=== PATIENT | male | born 1960 | race Caucasian/White ===

== ENCOUNTER 2021-06-02 11:50 | Inpatient (IN) | payer OTHER ==
[~2021-06-02] VITALS: Ht 177.8 cm; Wt 89.0 kg
[~2021-06-02 11:50] MED LIST: ALDACTONE25 MG PO; ASPIRIN CHEWABL81 MG PO; AUGMENTIN 875-1 EACH PO; BRILINTA 90 MG90 MG PO; COMBIVENT0.074 GM/I INH; COREG 12.5MG12.5 MG PO; COREG 3.125M3.125 MG PO; ELIQUIS2.5 MG PO; ELIQUIS5 MG PO; FUROSEMIDE40 MG PO; K-DUR TAB 10 M10 MEQ PO; LASIX40 MG PO; LEVAQUIN500 MG PO; LIPITOR TAB 2020 MG PO; LISINOPRIL2.5 MG PO; NEURONTIN800 MG PO; NITROSTAT 0.40.4 MG SL; NITROSTAT0.4 MG SL; PERCOCET 10-321 EACH PO; PLAVIX 75 MG TA75 MG PO; POTASSIUM CHLO10 ME1 PO; TYLENOL W/CODEIN1 E1 PO; VIBRAMYCIN 100100 MG PO; ZESTRIL2.5 MG PO; ZITHROMAX500 MG PO; ZOCOR40 MG PO
[2021-06-02 12:58] LABS: HEMOGLOBIN 13.7 gm/dl (14.0-17.5); RED BLOOD COUNT 4.36 M/UL (4.20-5.50); WHITE BLOOD COUNT 13.5 K/UL (4.5-11.0)
[2021-06-02 13:49] LABS: BUN/CREATININE RATIO 11 (0-10)
[2021-06-02] MEDS ORDERED: AMLODIPINE BESYL5 MG PO (17:15)
[2021-06-02] MEDS ORDERED: ELIQUIS5 MG PO (17:16)
[2021-06-02] MEDS ORDERED: ZETIA10 MG PO (17:17)
[2021-06-02] MEDS ORDERED: VITAMIN D21250 MCG PO (17:17)
[2021-06-02] MEDS ORDERED: BUPRENORPHINE-1 EACH SL (17:17)
[2021-06-02] MEDS ORDERED: FLOVENT 110.088 GM/I INH (17:18)
[2021-06-02] MEDS ORDERED: ENTRESTO 24 MG1 EACH PO (17:19)
[2021-06-03 05:42] LABS: HEMOGLOBIN 12.5 gm/dl (14.0-17.5); RED BLOOD COUNT 4.14 M/UL (4.20-5.50)
[2021-06-03 05:43] LABS: WHITE BLOOD COUNT 20.1 K/UL (4.5-11.0)
[2021-06-04 01:57] LABS: RED BLOOD COUNT 4.18 M/UL (4.20-5.50); WHITE BLOOD COUNT 17.7 K/UL (4.5-11.0)
--- NOTE | 2021-06-04 02:32 | NUR ---
0230 MD FRANCISCO AWARE OF CRITICAL CK[facility] AND TROPONIN.
[2021-06-04 10:34] LABS: BUN/CREATININE RATIO 17 (0-10)
[2021-06-05 05:28] LABS: HEMOGLOBIN 13.1 gm/dl (14.0-17.5); RED BLOOD COUNT 4.19 M/UL (4.20-5.50)
[2021-06-05 05:39] LABS: WHITE BLOOD COUNT 10.5 K/UL (4.5-11.0)
[2021-06-06 05:30] LABS: HEMOGLOBIN 12.3 gm/dl (14.0-17.5); RED BLOOD COUNT 4.04 M/UL (4.20-5.50); WHITE BLOOD COUNT 8.3 K/UL (4.5-11.0)
[2021-06-06 09:13] LABS: COMPLEMENT C3, SERUM 47 mg/dL (82-167); COMPLEMENT C4, SERUM 8 mg/dL (12-38); HBSAG SCREEN Negative (Negative); HEP B CORE AB, TOT Positive (Negative); HEP C VIRUS AB 0.3 (0.0-0.9)
[2021-06-06 10:12] LABS: ANTISTREPTOLYSIN O AB 171.2 IU/mL (0.0-200.0)
[2021-06-07 05:54] LABS: WHITE BLOOD COUNT 10.1 K/UL (4.5-11.0)
[2021-06-07 14:09] LABS: ANTI-DSDNA ANTIBODIES 1 IU/mL (0-9)
[2021-06-08 05:48] LABS: HEMOGLOBIN 12.5 gm/dl (14.0-17.5); RED BLOOD COUNT 4.2 M/UL (4.20-5.50); WHITE BLOOD COUNT 9.5 K/UL (4.5-11.0)
[2021-06-08 14:10] LABS: ALBUMIN 2.7 g/dL (2.9-4.4); ALPHA-1-GLOBULIN 0.3 g/dL (0.0-0.4); ALPHA-2-GLOBULIN 0.7 g/dL (0.4-1.0); BETA GLOBULIN 0.7 g/dL (0.7-1.3); GLOBULIN, TOTAL 2.8 g/dL (2.2-3.9); IMMUNOGLOBULIN A, QN, SERUM 375 mg/dL (90-386); IMMUNOGLOBULIN G, QN, SERUM 1035 mg/dL (603-1613); IMMUNOGLOBULIN M, QN, SERUM 53 mg/dL (20-172); M-SPIKE Not Observed g/dL (Not Observed); PROTEIN, TOTAL, SERUM 5.5 g/dL (6.0-8.5)
[2021-06-08 15:09] LABS: ANTI-DNA (DS) AB QN 1 IU/mL (0-9)
--- NOTE | 2021-06-09 05:05 | NUR ---
PT ARRIVED FROM ICU. AT BEDSIDE. PT ALERT BUT CONFUSED. DIAYLSIS DRESSING CHANGED DUE TO SOILED EXCESSIVELY WITH BLOOD. PERIPHERAL IV DRESSING CHANGED WELL. PT RESTING IN NAD AT THIS TIME. WILL CONTINUE TO MONITOR. CALL LIGHT WITHIN REACH AND BED IN LOW POSITION.
--- NOTE | 2021-06-09 05:06 | NUR ---
0427: GAVE REPORT FOR PATIENT 0429: TRANSPORTED PT IN STABLE CONDITION TO THE ROOM.
[2021-06-09 06:11] LABS: HEMOGLOBIN 11.1 gm/dl (14.0-17.5)
[2021-06-09 06:21] LABS: RED BLOOD COUNT 3.65 M/UL (4.20-5.50); WHITE BLOOD COUNT 18.3 K/UL (4.5-11.0)
[2021-06-09 17:09] LABS: ATYPICAL PANCA <1:20 titer (Neg:<1:20); PERINUCLEAR (P-ANCA) <1:20 titer (Neg:<1:20)
[2021-06-09 19:43] LABS: HEMOGLOBIN 10.2 gm/dl (14.0-17.5); RED BLOOD COUNT 3.29 M/UL (4.20-5.50); WHITE BLOOD COUNT 18.4 K/UL (4.5-11.0)
--- NOTE | 2021-06-09 19:47 | NUR ---
REPORT TO KAM JONES IN ICU PT TO BE TAKEN TO ROOM 2126
[2021-06-09 23:19] LABS: HEMOGLOBIN 10.6 gm/dl (14.0-17.5); RED BLOOD COUNT 3.45 M/UL (4.20-5.50); WHITE BLOOD COUNT 19.5 K/UL (4.5-11.0)
[2021-06-10 02:16] LABS: HEMOGLOBIN 10.4 gm/dl (14.0-17.5); RED BLOOD COUNT 3.41 M/UL (4.20-5.50); WHITE BLOOD COUNT 18.2 K/UL (4.5-11.0)
[2021-06-10 07:17] LABS: HEMOGLOBIN 10.4 gm/dl (14.0-17.5); RED BLOOD COUNT 3.38 M/UL (4.20-5.50); WHITE BLOOD COUNT 15.2 K/UL (4.5-11.0)
[2021-06-11 05:56] LABS: HEMOGLOBIN 9.8 gm/dl (14.0-17.5); RED BLOOD COUNT 3.23 M/UL (4.20-5.50)
[2021-06-11 05:57] LABS: WHITE BLOOD COUNT 11.2 K/UL (4.5-11.0)
--- NOTE | 2021-06-11 14:45 | NUR ---
RECEIVED PATIENT FROM ICU AT 1300 TODAY. REPORT TAKEN FROM LIZZIE. PATIENT IS RESTING QUIETLY. VASOPRESSIN TO BE TITRATED OFF PATIENT PER DR DUBOIS. PRESENTLY AT 2.4, WILL CHANGE TO 1.4 AND CONTINUE TO MONITOR. AMANDA
[2021-06-12 03:55] LABS: HEMOGLOBIN 11.4 gm/dl (14.0-17.5)
[2021-06-12 04:03] LABS: RED BLOOD COUNT 3.73 M/UL (4.20-5.50); WHITE BLOOD COUNT 15.8 K/UL (4.5-11.0)
[2021-06-13 09:11] LABS: HEMOGLOBIN 11.5 gm/dl (14.0-17.5); RED BLOOD COUNT 3.71 M/UL (4.20-5.50); WHITE BLOOD COUNT 15.1 K/UL (4.5-11.0)
[2021-06-14 03:54] LABS: RED BLOOD COUNT 3.95 M/UL (4.20-5.50); WHITE BLOOD COUNT 18.1 K/UL (4.5-11.0)
[2021-06-15 03:42] LABS: HEMOGLOBIN 11.2 gm/dl (14.0-17.5); RED BLOOD COUNT 3.67 M/UL (4.20-5.50); WHITE BLOOD COUNT 19.8 K/UL (4.5-11.0)
[2021-06-16 05:42] LABS: HEMOGLOBIN 11.5 gm/dl (14.0-17.5); RED BLOOD COUNT 3.78 M/UL (4.20-5.50)
[2021-06-17 02:39] LABS: HEMOGLOBIN 10.2 gm/dl (14.0-17.5); WHITE BLOOD COUNT 18.6 K/UL (4.5-11.0)
[2021-06-17 02:45] LABS: RED BLOOD COUNT 3.36 M/UL (4.20-5.50)
[2021-06-17 08:15] LABS: HBSAG SCREEN Negative (Negative); HEP A AB, IGM Negative (Negative); HEP B CORE AB, IGM Positive (Negative); HEP C VIRUS AB <0.1 (0.0-0.9)
[2021-06-18 06:10] LABS: HEMOGLOBIN 9.6 gm/dl (14.0-17.5); RED BLOOD COUNT 3.18 M/UL (4.20-5.50); WHITE BLOOD COUNT 15.6 K/UL (4.5-11.0)
[2021-06-18 09:14] LABS: COMPLEMENT C3, SERUM 144 mg/dL (82-167)
[2021-06-18 19:08] LABS: ATYPICAL PANCA <1:20 titer (Neg:<1:20); CYTOPLASMIC (C-ANCA) <1:20 titer (Neg:<1:20); PERINUCLEAR (P-ANCA) <1:20 titer (Neg:<1:20)
[2021-06-20 06:54] LABS: HEMOGLOBIN 9.1 gm/dl (14.0-17.5); WHITE BLOOD COUNT 11.8 K/UL (4.5-11.0)
--- NOTE | 2021-06-23 09:52 | NUR ---
patient had a blood pressure reading of 95/55. when rechecked patients blood pressure is now 123//73.
--- NOTE | 2021-06-24 12:59 | NUR ---
CLARIFIED WITH DR. LYONS THAT PATIENTS DIALYSIS CATHETER IS TEMPORARY AND THAT IS CATHETER IS NO TUNNELED. DR. LYONS GAVE ORDERS TO PULL THE DIAYSIS CATHETER AND TO APPLY PRESSURE AFTER THE CATHETER IS REMOVED.
--- NOTE | 2021-06-24 15:25 | NUR ---
PATIENT HAD TEMPERARY DIALYSIS CATHETER REMOVED. NO S/S OF INFECTION PRESENT. NO BLEEDING AT SITE. PATIENT TOLERATED WELL. WILL CONTINUE TO MONITOR.
[2021-06-25] MEDS ORDERED: LOPRESSOR 50 MG50 MG PO (10:38)
[2021-06-25] MEDS ORDERED: PROTONIX 40 MG40 M1 PO (10:54)
--- NOTE | 2021-06-25 11:51 | NUR ---
RM AIR O2 SAT 82.
== END 2021-06-25 10:36 | disposition home health service (06) | DRG 871 ==
LOC: ER1 11:50 → PROG CARE 15:59 → MED SURG 4 15:59 → CDU 15:59 → CCU 15:59 → PROG CARE 06-09 05:12 → CCU 06-09 20:09 → PROG CARE 06-11 12:49 → CCU 06-15 12:17 → MED SURG 4 06-16 17:49
PROVIDERS: Hospitalist; Internal Medicine; Internal Medicine Nephrology; Internal Medicine Pulmonary Disease; Physician Assistant; ADMIT Internal Medicine
DX: A41.9 Sepsis, unspecified organism (principal); I21.A1 Myocardial infarction type 2; R65.21 Severe sepsis with septic shock; I50.23 Acute on chronic systolic (congestive) heart failure; N17.0 Acute kidney failure with tubular necrosis; J96.01 Acute respiratory failure with hypoxia; J18.9 Pneumonia, unspecified organism; Z20.822 Contact with and (suspected) exposure to COVID-19; K72.00 Acute and subacute hepatic failure without coma; N18.6 End stage renal disease; I48.20 Chronic atrial fibrillation, unspecified; B19.10 Unspecified viral hepatitis B without hepatic coma; K40.30 Unilateral inguinal hernia, with obstruction, without gangrene, not specified as recurrent; D62 Acute posthemorrhagic anemia; K92.2 Gastrointestinal hemorrhage, unspecified; I13.0 Hypertensive heart and chronic kidney disease with heart failure and stage 1 through stage 4 chronic kidney disease, or unspecified chronic kidney disease; G93.40 Encephalopathy, unspecified; I13.2 Hypertensive heart and chronic kidney disease with heart failure and with stage 5 chronic kidney disease, or end stage renal disease; I42.0 Dilated cardiomyopathy; K42.0 Umbilical hernia with obstruction, without gangrene; E87.3 Alkalosis; E87.2 Acidosis; E87.1 Hypo-osmolality and hyponatremia; I49.5 Sick sinus syndrome; E78.5 Hyperlipidemia, unspecified; K59.81 Ogilvie syndrome; I95.9 Hypotension, unspecified; E87.6 Hypokalemia; R74.01 Elevation of levels of liver transaminase levels; K74.60 Unspecified cirrhosis of liver; E87.70 Fluid overload, unspecified; G89.29 Other chronic pain; I49.3 Ventricular premature depolarization; I45.10 Unspecified right bundle-branch block; R53.81 Other malaise; I27.20 Pulmonary hypertension, unspecified; I25.5 Ischemic cardiomyopathy; M79.81 Nontraumatic hematoma of soft tissue; I25.10 Atherosclerotic heart disease of native coronary artery without angina pectoris; Z95.1 Presence of aortocoronary bypass graft; Z95.810 Presence of automatic (implantable) cardiac defibrillator; Z79.82 Long term (current) use of aspirin; Z79.01 Long term (current) use of anticoagulants; Z86.711 Personal history of pulmonary embolism; Z80.1 Family history of malignant neoplasm of trachea, bronchus and lung
CPT/HCPCS: ECHO; 0240U; 36415; 36600; 71045; 74018; 80048; 80053; 80069; 80074; 80202; 81001; 82140; 82436; 82550; 82553; 82570; 82595; 82784; 82803; 82962; 83036; 83520; 83605; 83735; 83874; 83880; 83883; 84100; 84133; 84155; 84156; 84165; 84300; 84439; 84443; 84484; 85025; 85027; 85610; 85730; 86038; 86060; 86140; 86160; 86162; 86225; 86256; 86334; 86704; 86706; 86708; 86803; 87040; 87086; 87340; 89050; 90935; 90937; 92610; 93005; 93306; 94640; 94660; 94664; 94760; 96374; 96375; 97110; 97116; 97161; 97162; 97165; 97168; 97530; 97530-GP-CQ; 97535; 99285; C1752; C1781; C9113; J0456; J0690; J0692; J0696; J1170; J1644; J1940; J2185; J2250; J2370; J2704; J2710; J2930; J3010; J3370; J7030; J7040; J7070; J7120; P9047; Q9967; U0002

== ENCOUNTER 2021-06-29 23:13 | Emergency (ER) | payer OTHER ==
[~2021-06-29 23:13] MED LIST changes: +AMLODIPINE BESYL5 MG PO; +BUPRENORPHINE-1 EACH SL; +ENTRESTO 24 MG1 EACH PO; +FLOVENT 110.088 GM/I INH; -LIPITOR TAB 2020 MG PO; +LIPITOR40 MG PO; +LOPRESSOR 50 MG50 MG PO; +PROTONIX 40 MG40 M1 PO; +VITAMIN D21250 MCG PO; +ZETIA10 MG PO
[2021-06-30 00:03] LABS: HEMOGLOBIN 9.6 gm/dl (14.0-17.5); RED BLOOD COUNT 3.18 M/UL (4.20-5.50); WHITE BLOOD COUNT 11.3 K/UL (4.5-11.0)
== END 2021-06-30 05:40 | disposition home or self-care (01) ==
LOC: ER1 23:13
PROVIDERS: Family Medicine
DX: M79.81 Nontraumatic hematoma of soft tissue (principal); D64.9 Anemia, unspecified; I13.0 Hypertensive heart and chronic kidney disease with heart failure and stage 1 through stage 4 chronic kidney disease, or unspecified chronic kidney disease; I50.20 Unspecified systolic (congestive) heart failure; N18.9 Chronic kidney disease, unspecified; I48.91 Unspecified atrial fibrillation; Z99.81 Dependence on supplemental oxygen; R06.00 Dyspnea, unspecified; Z79.82 Long term (current) use of aspirin; Z79.01 Long term (current) use of anticoagulants; Z79.899 Other long term (current) drug therapy
CPT/HCPCS: 71045; 80053; 81001; 82550; 82553; 83605; 83690; 83874; 84484; 85025; 93005; 99285

== ENCOUNTER 2021-07-17 16:53 | Inpatient (IN) | payer OTHER ==
[~2021-07-17] VITALS: Ht 177.8 cm; Wt 86.3 kg
[~2021-07-17 16:53] MED LIST changes: +LIPITOR TAB 2020 MG PO; -LIPITOR40 MG PO
[2021-07-17 18:55] LABS: HEMOGLOBIN 10.9 gm/dl (14.0-17.5); RED BLOOD COUNT 3.65 M/UL (4.20-5.50); WHITE BLOOD COUNT 10.6 K/UL (4.5-11.0)
[2021-07-18 07:16] LABS: HEMOGLOBIN 10.6 gm/dl (14.0-17.5); RED BLOOD COUNT 3.67 M/UL (4.20-5.50); WHITE BLOOD COUNT 11.3 K/UL (4.5-11.0)
--- NOTE | 2021-07-18 17:34 | NUR ---
PATIENT IN ATRIAL FIBRILATION WITH RVR. NOTIFIED CARDIOLOGY. NEW ORDER FOR AMIODARONE DRIP. NOTIFIED [employer]AL TOWER OPERATOR OF BED REQUEST. NOTIFIED DR. CORTEZ FOR TRANSFER ORDERS.
[2021-07-19 08:14] LABS: HEMOGLOBIN 11.9 gm/dl (14.0-17.5)
[2021-07-19 08:15] LABS: RED BLOOD COUNT 4.08 M/UL (4.20-5.50); WHITE BLOOD COUNT 15.1 K/UL (4.5-11.0)
[2021-07-20 03:08] LABS: HEMOGLOBIN 11.8 gm/dl (14.0-17.5); RED BLOOD COUNT 4.07 M/UL (4.20-5.50); WHITE BLOOD COUNT 15.6 K/UL (4.5-11.0)
[2021-07-20] MEDS ORDERED: ELIQUIS 5 MG TAB5 MG PO (10:31)
[2021-07-20] MEDS ORDERED: CARVEDILOL3.125 MG PO (10:31)
[2021-07-20] MEDS ORDERED: LASIX40 MG PO (10:31)
== END 2021-07-20 12:54 | disposition home health service (06) | DRG 291 ==
LOC: ER1 16:53 → CDU 20:52 → M/S 22:26 → CDU 22:26 → M/S 07-18 03:15 → PROG CARE 07-18 18:35
PROVIDERS: Family Medicine; Internal Medicine; Internal Medicine Cardiovascular Disease; Physician Assistant; ADMIT Internal Medicine
DX: I13.0 Hypertensive heart and chronic kidney disease with heart failure and stage 1 through stage 4 chronic kidney disease, or unspecified chronic kidney disease (principal); Z20.822 Contact with and (suspected) exposure to COVID-19; I50.23 Acute on chronic systolic (congestive) heart failure; I48.20 Chronic atrial fibrillation, unspecified; E83.42 Hypomagnesemia; F11.20 Opioid dependence, uncomplicated; B18.1 Chronic viral hepatitis B without delta-agent; J96.11 Chronic respiratory failure with hypoxia; N18.30 Chronic kidney disease, stage 3 unspecified; E11.22 Type 2 diabetes mellitus with diabetic chronic kidney disease; I27.20 Pulmonary hypertension, unspecified; R33.9 Retention of urine, unspecified; I49.3 Ventricular premature depolarization; E87.6 Hypokalemia; I25.10 Atherosclerotic heart disease of native coronary artery without angina pectoris; N14.1 Nephropathy induced by other drugs, medicaments and biological substances; I25.5 Ischemic cardiomyopathy; Z95.810 Presence of automatic (implantable) cardiac defibrillator; Z86.711 Personal history of pulmonary embolism; Z95.5 Presence of coronary angioplasty implant and graft; Z98.890 Other specified postprocedural states; Z80.1 Family history of malignant neoplasm of trachea, bronchus and lung; Z87.01 Personal history of pneumonia (recurrent); Z79.01 Long term (current) use of anticoagulants; Z79.82 Long term (current) use of aspirin
CPT/HCPCS: 36415; 71045; 80048; 80053; 81001; 82550; 82553; 82728; 82962; 83540; 83550; 83735; 83880; 84484; 85025; 85610; 85730; 93005; 96374; 96375; 96376; 99285; G0378; J1650; J1940; J2405; J2550; J3475; U0002

== ENCOUNTER 2021-07-26 15:34 | Inpatient (IN) | payer OTHER ==
[~2021-07-26] VITALS: Ht 177.8 cm; Wt 100.2 kg
[~2021-07-26 15:34] MED LIST changes: +CARVEDILOL3.125 MG PO; +ELIQUIS 5 MG TAB5 MG PO; -LIPITOR TAB 2020 MG PO; +LIPITOR40 MG PO
[2021-07-26] MEDS ORDERED: ELIQUIS5 MG PO (17:42)
[2021-07-26] MEDS ORDERED: FUROSEMIDE40 MG PO (17:43)
[2021-07-26] MEDS ORDERED: POTASSIUM CHLO20 ME2 PO (17:44)
[2021-07-26] MEDS ORDERED: GABAPENTIN800 MG PO (17:45)
[2021-07-26] MEDS ORDERED: CARVEDILOL12.5 MG PO (17:46)
[2021-07-26] MEDS ORDERED: VITAMIN B-121000 MCG PO (17:46)
[2021-07-26 19:07] LABS: HEMOGLOBIN 11.2 gm/dl (14.0-17.5); RED BLOOD COUNT 3.79 M/UL (4.20-5.50); WHITE BLOOD COUNT 12.7 K/UL (4.5-11.0)
[2021-07-27 01:56] LABS: HEMOGLOBIN 10.6 gm/dl (14.0-17.5); RED BLOOD COUNT 3.62 M/UL (4.20-5.50); WHITE BLOOD COUNT 12.2 K/UL (4.5-11.0)
[2021-07-27 15:20] LABS: ACINETOBACTER BAUMANNII Not Detected (Negative); CANDIDA ALBICANS Not Detected (Negative); CANDIDA KRUSEI Not Detected (Negative); CANDIDA TROPICALIS Not Detected (Negative); ENTEROCOCCUS Not Detected (Negative); ESCHERICHIA COLI Not Detected (Negative); HAEMOPHILUS INFLUENZAE Not Detected (Negative); KLEBSIELLA OXYTOCA Not Detected (Negative); KLEBSIELLA PNEUMONIAE Not Detected (Negative); KPC-CARBAPENEM-RESISTANCE GENE Not Detected (Negative); PROTEUS Not Detected (Negative); PSEUDOMONAS AERUGINOSA Not Detected (Negative); SERRATIA MARCESANS Not Detected (Negative); STAPHYLOCOCCUS AUREUS Not Detected (Negative); STREP AGALACTIAE (GROUP B) Not Detected (Negative); STREP PYOGENES (GROUP A) Not Detected (Negative); STREPTOCOCCUS Not Detected (Negative); vanA/B (VANCOMYCIN RESIST GENE Not Detected (Negative)
[2021-07-27 16:39] LABS: mecA (METHICILLIN RESIST GENE DETECTED (Negative)
[2021-07-27 16:40] LABS: STAPHYLOCOCCUS DETECTED (Negative)
[2021-07-28 03:31] LABS: HEMOGLOBIN 11.5 gm/dl (14.0-17.5); RED BLOOD COUNT 3.92 M/UL (4.20-5.50); WHITE BLOOD COUNT 13.5 K/UL (4.5-11.0)
[2021-07-29 02:47] LABS: HEMOGLOBIN 11.4 gm/dl (14.0-17.5); RED BLOOD COUNT 3.89 M/UL (4.20-5.50); WHITE BLOOD COUNT 13.4 K/UL (4.5-11.0)
[2021-07-30 02:25] LABS: HEMOGLOBIN 10.5 gm/dl (14.0-17.5); RED BLOOD COUNT 3.56 M/UL (4.20-5.50); WHITE BLOOD COUNT 12.5 K/UL (4.5-11.0)
[2021-07-31 06:41] LABS: HEMOGLOBIN 10.2 gm/dl (14.0-17.5); RED BLOOD COUNT 3.55 M/UL (4.20-5.50); WHITE BLOOD COUNT 11.3 K/UL (4.5-11.0)
[2021-07-31] MEDS ORDERED: JANTOVEN7.5 MG PO (10:09)
[2021-07-31] MEDS ORDERED: FUROSEMIDE40 MG PO (10:09)
--- NOTE | 2021-07-31 10:56 | NUR ---
REPORT CALLED TO YEFRI AT [facility] FOR PATIENT WEEKLY INR DRAWS FOR HIS COUMADIN DOSING
== END 2021-07-31 12:10 | disposition home or self-care (01) | DRG 280 ==
LOC: ER1 15:34 → CDU 17:19 → PROG CARE 17:19
PROVIDERS: Emergency Medicine; Internal Medicine; ADMIT Internal Medicine
DX: I13.0 Hypertensive heart and chronic kidney disease with heart failure and stage 1 through stage 4 chronic kidney disease, or unspecified chronic kidney disease (principal); Z20.822 Contact with and (suspected) exposure to COVID-19; I26.99 Other pulmonary embolism without acute cor pulmonale; I21.A1 Myocardial infarction type 2; I50.23 Acute on chronic systolic (congestive) heart failure; J96.21 Acute and chronic respiratory failure with hypoxia; N17.9 Acute kidney failure, unspecified; F11.20 Opioid dependence, uncomplicated; B19.10 Unspecified viral hepatitis B without hepatic coma; I48.20 Chronic atrial fibrillation, unspecified; M62.82 Rhabdomyolysis; M79.81 Nontraumatic hematoma of soft tissue; G89.4 Chronic pain syndrome; F19.10 Other psychoactive substance abuse, uncomplicated; N18.30 Chronic kidney disease, stage 3 unspecified; T50.2X5A Adverse effect of carbonic-anhydrase inhibitors, benzothiadiazides and other diuretics, initial encounter; E87.6 Hypokalemia; E83.42 Hypomagnesemia; I27.20 Pulmonary hypertension, unspecified; E11.22 Type 2 diabetes mellitus with diabetic chronic kidney disease; I25.5 Ischemic cardiomyopathy; I45.81 Long QT syndrome; I25.10 Atherosclerotic heart disease of native coronary artery without angina pectoris; Z95.1 Presence of aortocoronary bypass graft; Z79.4 Long term (current) use of insulin; Z79.01 Long term (current) use of anticoagulants; Z79.82 Long term (current) use of aspirin; Z95.5 Presence of coronary angioplasty implant and graft; I25.2 Old myocardial infarction; Z95.810 Presence of automatic (implantable) cardiac defibrillator; Z90.49 Acquired absence of other specified parts of digestive tract; Z80.1 Family history of malignant neoplasm of trachea, bronchus and lung
CPT/HCPCS: 36415; 36600; 71045; 80048; 80053; 80202; 81001; 82550; 82553; 82803; 82962; 83036; 83540; 83550; 83605; 83735; 83874; 83880; 84132; 84484; 85025; 85027; 85610; 85652; 85730; 86140; 87040; 87077; 87081; 87086; 87150; 87186; 87278; 93005; 93970; 94640; 94760; 96365; 96366; 96375; 96376; 97161; 97165; 99285; J0692; J1644; J1940; J2185; J3370; J3475; J7030; J7070; Q9967; U0002

== ENCOUNTER 2021-11-06 13:57 | Inpatient (IN) | payer OTHER ==
[~2021-11-06] VITALS: Ht 177.8 cm; Wt 78.5 kg
[~2021-11-06 13:57] MED LIST changes: +CARVEDILOL12.5 MG PO; +GABAPENTIN800 MG PO; +JANTOVEN7.5 MG PO; +POTASSIUM CHLO20 ME2 PO; +VITAMIN B-121000 MCG PO
[2021-11-06 14:37] LABS: HEMOGLOBIN 13.2 gm/dl (14.0-17.5); RED BLOOD COUNT 4.8 M/UL (4.20-5.50); WHITE BLOOD COUNT 8.8 K/UL (4.5-11.0)
[2021-11-07 03:50] LABS: HEMOGLOBIN 11.8 gm/dl (14.0-17.5); RED BLOOD COUNT 4.32 M/UL (4.20-5.50); WHITE BLOOD COUNT 8.1 K/UL (4.5-11.0)
[2021-11-07] MEDS ORDERED: ELIQUIS 5 MG TAB5 MG PO (10:06)
[2021-11-07] MEDS ORDERED: DIGOXIN125 MCG PO (10:06)
[2021-11-07] MEDS ORDERED: CARVEDILOL25 MG PO (10:06)
== END 2021-11-07 11:45 | disposition home or self-care (01) | DRG 309 ==
LOC: ER1 13:57 → CDU 17:14 → PROG CARE 18:15
PROVIDERS: Emergency Medicine; Physician Assistant; ADMIT Internal Medicine
PROC: B24BZZZ Ultrasonography of Heart with Aorta (ICD-10-PCS; principal; 2021-11-07)
DX: I48.91 Unspecified atrial fibrillation (principal); I50.22 Chronic systolic (congestive) heart failure; Z20.822 Contact with and (suspected) exposure to COVID-19; I13.0 Hypertensive heart and chronic kidney disease with heart failure and stage 1 through stage 4 chronic kidney disease, or unspecified chronic kidney disease; B19.10 Unspecified viral hepatitis B without hepatic coma; I45.10 Unspecified right bundle-branch block; N18.30 Chronic kidney disease, stage 3 unspecified; J98.4 Other disorders of lung; I08.1 Rheumatic disorders of both mitral and tricuspid valves; I25.5 Ischemic cardiomyopathy; E11.22 Type 2 diabetes mellitus with diabetic chronic kidney disease; I25.10 Atherosclerotic heart disease of native coronary artery without angina pectoris; Z99.81 Dependence on supplemental oxygen; Z95.5 Presence of coronary angioplasty implant and graft; I25.2 Old myocardial infarction; Z95.810 Presence of automatic (implantable) cardiac defibrillator; Z86.711 Personal history of pulmonary embolism; Z79.01 Long term (current) use of anticoagulants; Z79.82 Long term (current) use of aspirin; Z79.4 Long term (current) use of insulin; Z90.49 Acquired absence of other specified parts of digestive tract; Z82.49 Family history of ischemic heart disease and other diseases of the circulatory system; Z91.14 Patient's other noncompliance with medication regimen; Z87.01 Personal history of pneumonia (recurrent)
CPT/HCPCS: ECHO; 36415; 71045; 80053; 82550; 82553; 82962; 83735; 83880; 84100; 84439; 84443; 84484; 85025; 85610; 85730; 93005; 93306; 99285; J1160; Q9967; U0002